=== PATIENT | male | born 1935 | race Caucasian/White ===

== ENCOUNTER → 2023-12-17 11:22 | Outpatient (BNVA) | payer MEDICARE, MEDICAID, SELFPAY | PROVIDERS: PCP Nurse Practitioner; Visit Provider Nurse Practitioner | DX: E53.8 Deficiency of other specified B group vitamins (principal); E55.9 Vitamin D deficiency, unspecified; I48.20 Chronic atrial fibrillation, unspecified | CPT/HCPCS: 80053; 82306; 82607; 84443; 85025 ==